=== PATIENT | male | born 1945 | race Caucasian/White ===

== ENCOUNTER → 2016-10-27 | Day surgery (SDC) | payer MEDICARE, OTHER ==
[~2016-10-27] MED LIST: ALL DAY ALLERGY10 M2; ALLERGY10 M2 PO; AMBIEN10 MG PO; AMLODIPINE BESY10 MG; ASPIRIN PO; BUMETANIDE0.5 MG PO; CERTAGEN; ELIQUIS5 MG PO; FISH OIL 1,0001 EAC1 PO; HYDROCODON-ACE1 EAC2 PO; IBUPROFEN PO; LIPITOR PO; LIPITOR80 MG PO; LOPRESSOR PO; MAG-OX 400400 MG PO; MIRTAZAPINE30 M1 PO; NEURONTIN300 MG PO; NIACIN500 M2 PO; NITROSTAT0.4 MG SL; OMEPRAZOLE20 M1 PO; PERCOCET10 PO; PLAVIX PO; POTASSIUM CHLO20 ME1 PO; PRILOSEC PO; SOTALOL AF120 MG PO; TYLENOL325 M1 PO; ULORIC40 MG PO; ZESTORETIC 20/11 TAB PO; ZETIA PO; ZOLPIDEM TARTRA10 MG PO
--- NOTE | ~2016-10-27 | OR ---
Unit #: [id number] #: [id number] Patient: KATHARINE PIZANO [id number] [address] [place], [place] [address] [id number] O MR#: [id number] NAME: KATHARINE PIZANO ROOM: Date of Procedure: 10/27/2016 Admission Date: 10/27/2016 Surgeon: Seymour Pardo M.D. : 1945 Attending Physician: Seymour Pardo M.D. Primary Care Physician: Sydnee Tamez M.D. SUR[facility] CENTER OPERATIVE NOTE PROCEDURE PERFORMED Lumbar epidural steroid injection under x-ray guided needle placement with provider administered conscious sedation. PREOPERATIVE DIAGNOSES 1. Acute lumbar radiculitis. 2. Spinal stenosis, lumbosacral spine. 3. Degenerative joint disease, lumbosacral spine. 4. Degenerative disk disease, lumbosacral spine. INDICATIONS FOR PROCEDURE The patient presents today with longstanding history of chronic lumbar radicular pain secondary to his underlying degenerative processes. He states over the course of the past several months to a year, his pain is advanced in a crescendo pattern and has failed to respond to his ongoing conservative measures, which have included physical therapy. After discussing risks and benefits of proceeding today with an L3-L4 lumbar approach epidural steroid injection as his x-ray seems to indicate that is the most notably worse at the level of his lumbosacral spine, the patient agreed this would be the appropriate course of action. He was also scheduled to return on 11/12/2016 for potential followup as well as a referral to [facility] for potential radiofrequency ablation of his facet arthrosis. DESCRIPTION OF PROCEDURE Following these discussions, the patient was taken to the operating room, where he was prepped and draped in a sterile manner. Standard monitors were applied. He was sedated with 2 mg of IV Versed and required an additional 1 mL of IV fentanyl throughout the duration of procedure. Lumbar epidural space accessed at the L3-L4 level using loss of resistance technique and x-ray guidance. Needle placement was confirmed with injection of 2 mL of Omnipaque. There was good superior and inferior flow at this L3-L4 placed needle. Following successful needle placement confirmation which required an x-ray time of 7 seconds, the patient received an injectate containing 2 mL normal saline, 2 mL of 0.25% bupivacaine, and 80 mg of methylprednisolone. He tolerated this procedure well. He was discharged home with followup instructions, which include return dates as described above. Dictated by... Seymour Pardo M.D. Unit #: [id number] #: [id number] Patient: KATHARINE PIZANO JRArnaldo/jesse TD: 10/28/2016 01:33 JOB #: [id number] [facility]ENTER OPERATIVE NOTE Page 1 of 1 X Ari Pardo MD X PROCEDURE OPERATIVE NOTE
== END | disposition home or self-care (01) ==
LOC: CCSC 10:25
DX: G89.29 Other chronic pain (principal); M51.17 Intervertebral disc disorders with radiculopathy, lumbosacral region; M47.27 Other spondylosis with radiculopathy, lumbosacral region; M48.07 Spinal stenosis, lumbosacral region; Z98.890 Other specified postprocedural states
CPT/HCPCS: J1040; J2250; J3010

== ENCOUNTER → 2016-11-12 | Day surgery (SDC) | payer MEDICARE, OTHER ==
--- NOTE | ~2016-11-12 | OR ---
Unit #: [id number] #: [id number] Patient: KATHARINE PIZANO [id number] [address] [place], [place] [address] [id number] O MR#: [id number] NAME: KATHARINE PIZANO ROOM: Date of Procedure: 11/12/2016 Admission Date: 11/12/2016 Surgeon: Seymour Pardo M.D. : 1945 Attending Physician: Seymour Pardo M.D. Primary Care Physician: Sydnee Tamez M.D. SURGERY CENTER OPERATIVE NOTE PROCEDURE PERFORMED Lumbar epidural steroid injection under x-ray guided needle placement with provider administered conscious sedation. PREOPERATIVE DIAGNOSES 1. Acute lumbar radiculitis. 2. Spinal stenosis, lumbosacral spine. 3. Degenerative joint disease, lumbosacral spine. 4. Degenerative disk disease, lumbosacral spine. 5. Facet arthralgia, lumbosacral spine. 6. Facet arthrosis, lumbosacral spine. INDICATIONS FOR PROCEDURE The patient presents today, status post one previous lumbar approach epidural steroid injection for an acute radiculitis, which had failed to respond to conservative therapy. He states he got good results with his initial injection from the radicular pain standpoint. However, he has continued to have pain compatible with facet arthralgia, which has poorly responded to epidural steroid injections. We would not have expected his pain to respond to the epidural steroid injections. However, he does also present with his radicular pain, which is advancing in a crescendo pattern and it is negatively impacting his activities of daily living. After discussing the risks and benefits of proceeding today with a second lumbar approach epidural steroid injection utilizing a dual needle access technique, the patient agreed this would be the appropriate course of action. We also discussed referral to [facility] for potential radiofrequency ablation following facet joint injections. DESCRIPTION OF PROCEDURE Following these discussions, Mr. Pizano was taken to the operating room, where he was prepped and draped in a sterile manner. Standard monitors were applied. He was sedated with 2 mg of IV Versed and the lumbar epidural space was accessed at L3-L4 and L2-L3 levels using loss of resistance technique and x-ray guidance. Needle placement at each level was confirmed with the injection of 2 mL of Omnipaque. At the L3-L4 level, there was very little flow in the superior direction. At the L2-L3 level, there was good superior and inferior flow. Following successful needle placement confirmation, the patient received an injectate containing 4 mL of normal saline and 40 mg of methylprednisolone at each level for a total injectate volume of 8 mL of normal saline and 80 mg of methylprednisolone. He tolerated this procedure well. He was discharged home with followup instructions, which include an offer to return to this clinic as early as 02/18 if we could be of further service to him. Unit #: [id number] #: [id number] Patient: KATHARINE PIZANO Dictated by... Alyx Pelayo/jesse TD: 11/12/2016 14:25 JOB #: [id number] SUR[facility] CENTER OPERATIVE NOTE Page 1 of 1 X Ari Pardo MD X PROCEDURE OPERATIVE NOTE
== END | disposition home or self-care (01) ==
LOC: CCSC 08:30
DX: M51.17 Intervertebral disc disorders with radiculopathy, lumbosacral region (principal); M48.07 Spinal stenosis, lumbosacral region; M47.27 Other spondylosis with radiculopathy, lumbosacral region; I50.9 Heart failure, unspecified; K21.9 Gastro-esophageal reflux disease without esophagitis; Z79.01 Long term (current) use of anticoagulants; Z79.899 Other long term (current) drug therapy; Z79.891 Long term (current) use of opiate analgesic; Z95.5 Presence of coronary angioplasty implant and graft
CPT/HCPCS: J1040; J2250

== ENCOUNTER 2016-12-07 15:47 | Emergency (ER) | payer MEDICARE, OTHER | END 2016-12-07 18:40 | disposition home or self-care (01) | LOC: CFTX 15:47 → CED 15:47 → CFTX 18:36 → CED 18:36 → CFTX 18:40 | DX: S51.811A Laceration without foreign body of right forearm, initial encounter (principal); M54.9 Dorsalgia, unspecified; I48.91 Unspecified atrial fibrillation; Z98.890 Other specified postprocedural states; Z79.899 Other long term (current) drug therapy; W01.0XXA Fall on same level from slipping, tripping and stumbling without subsequent striking against object, initial encounter | CPT/HCPCS: 99283 ==